=== PATIENT | female | born 1970 | race Two or more races ===

== ENCOUNTER 2024-08-26 05:45 | Day surgery (SDC) | payer MEDICAID, SELFPAY ==
[2024-08-24 10:47] VITALS: BMI 50.5
--- NOTE | 2024-08-24 11:08 | EKG_ITS ---
[facility] Test Date: 2024-08-24 Pat Name: OCTAVIO GALAVIZ Department: Room: - Gender: Female Health Sciences Manager: RTSJC : 1970 Requested By: Joesph Flood Order Number: [id number] Reading MD: Joesph Flood Measurements Intervals [place]ess Rate: 67 P: 18 ID: [id number] QRS: 8 QRSD: 87 T: 26 QT: 370 QTc: 393 Interpretive Statements SINUS RHYTHM LOW QRS VOLTAGE IN PRECORDIAL LEADS No previous ECG available for comparison /store/[email or web address]/[id number].pdf
[2024-08-24 13:13] LABS: Basophils # (Auto) 0.1 Thou/mm3 (0.0-0.2); Basophils % (Auto) 1 % (0-2.5); Eosinophils # (Auto) 0.1 Thou/mm3 (0.0-0.5); Eosinophils % (Auto) 1 % (0-10); Hemoglobin 10.7 g/dL (12.0-16.0); Immature Granulocytes % (Auto) 0 % (0-0); Immature Granulocytes Auto 0.03 Thou/mm3 (0.00-0.00); Lymphocytes # (Auto) 1.7 Thou/mm3 (1.0-4.8); Lymphocytes % (Auto) 18 % (10-50); Mean Corpuscular HGB Conc 31.5 g/dl (31.0-37.0); Mean Corpuscular Hemoglobin 24.9 pg (25.0-35.0); Mean Corpuscular Volume 79 fL (80-100); Monocytes # (Auto) 0.9 Thou/mm3 (0.0-0.8); Monocytes % (Auto) 9 % (0-12); Neutrophils # (Auto) 6.6 Thou/mm3 (1.8-7.7); Neutrophils % (Auto) 71 % (37-80); Nucleated Red Blood Cell % 0 /100 WBC (0); Platelet Count 413 Thou/mm3 (140-440); RDW Standard Deviation 55.3 fL (36.4-46.3); Red Blood Count 4.29 Miln/mm3 (4.00-5.20); White Blood Count 9.4 Thou/mm3 (3.6-11.0)
[2024-08-24 13:55] LABS: Alanine Aminotransferase 10 U/L (10-49); Albumin, Serum 4.6 gm/dL (3.5-5.0); Albumin/Globulin Ratio 1.5 (1.2-2.2); Alkaline Phosphatase 47 U/L (46-116); Anion Gap 8 (7-16); Aspartate Amino Transferase 18 U/L (0-34); BUN/Creatinine Ratio 21 Ratio (12-20); Bilirubin,Total 0.7 mg/dL (0.3-1.2); Blood Urea Nitrogen 17 mg/dL (9-23); Calcium 9.9 mg/dL (8.3-10.6); Calcium (Corrected) 9.9 mg/dL (8.5-10.1); Carbon Dioxide 27.7 mMol/L (20.0-31.0); Chloride 100 mMol/L (98-107); Creatinine (Component) 0.8 mg/dL (0.6-1.3); Estimated Creatinine Clearance 69.9 mL/min (>60); Glucose 164 mg/dL (74-106); Osmolality,Calculated 277 (275-295); Sodium 136 mMol/L (136-145); Total Protein 7.6 gm/dL (5.7-8.2); eGFR > 60 See Note
[2024-08-24 14:02] LABS: HIV (1&2) Antibody Rapid Non-Reactive
[2024-08-24 17:15] LABS: HCG,Qualitative Serum Negative
[2024-08-26] VITALS (7 sets, daily range): BP systolic 119–140; BP diastolic 76–90; PULSE 66–90; RESP 15–20; TEMP 36.7–36.9; O2SAT 95–100; BMI 50.0
[2024-08-26 02:07] LABS: Hepatitis A Antibody IgM Non Reactive (Non React); Hepatitis B Core Antibody IgM Non Reactive (Non React); Hepatitis B Surface Antigen Non Reactive (Non React); Hepatitis C Antibody Non Reactive (Non React)
[2024-08-26] MEDS: RINGERS LACTATED 1000 ML 1,000 ML 20 ML IV (06:34)
--- NOTE | 2024-08-26 08:28 | SUR.PHASEI ---
0828 Patient arrived to recovery resting comfortably in [facility], on oxygen 10L via oxy mask, sleeping and able to arouse; then drift back to sleep, breathing unlabored, vital signs stable, denies pain, dressing intact to vaginal area; peripad, no bleeding noted, lung sounds clear upon auscultation, bilateral radial pulses present when palpated, report received from Shawn MTZ and Krysta JESUS
--- NOTE | 2024-08-26 08:36 | PD.GYNPROC ---
Operative Note - [employer] Procedure Date of procedure: 08/26/24 Procedure Performed: Hysteroscopy, diagnosed Indication: Abnormal uterine bleeding Pre-Op diagnosis: Same Post-Op diagnosis: Same, likely perimenopausal Anesthesia type: General Procedure description: The patient was seen prior to surgery. The potential benefits and risks of the procedure, the likelihood of success, and the problems related to recuperation have been discussed with patient who agrees to proceed. The possible results of nontreatment and significant alternatives to the proposed procedure have also been explained, along with the risks and benefits of the alternatives. Risks and benefits of chosen anesthetic/sedation and possible use of blood/blood products (if appropriate) were discussed.The patient was identified as Danielle Cole and the procedure verified. A time out was held reviewing the patient identifiers, procedure planned and allergies. At this point the procedure was begun. The patient was positioned and prepped in routine fashion in the dorsal lithotomy position using yellowfin stirups. On examination under anesthesia,the uterus was retroverted to a normal size.Bladder was drained by catheter. A weighted speculum was then placed into the patient's posterior vagina. A familia was used to expose the anterior lip of the cervix which was then grasped by a single tooth tenaculum.The cervix was then very easily dilated to a size 6 Hegar dilator. The hysteroscope was then placed under direct visualization. Warm lactated Ringer's was used as a distention medium. The patient's uterus was found to have normal endometrial cavity without any polyps. Pictures were taken. Hysteroscope was removed and we proceeded with the D&C. Endometrial curettings were sent for pathologyy. There was minimal bleeding noted and tenaculum was removed. Hemostasis was acheived with a ringed forcep on anterior cervix. Estimated blood loss (ml): 5 Surgical staff Operation Date: 08/26/24 07:30 Case Staff SHINE WORKER: Tomi Linton Diagnosis Problem List Completed Was Problem List Reviewed/Reconciled?: Yes
--- NOTE | 2024-08-26 09:14 | SUR.PHASEII ---
0914 Patient meets discharge criteria from recovery, awake and alert, breathing unlabored, vital signs stable, denies pain, dressing intact; no bleeding, patient ate a jello and drinking cranberry juice; denies nausea, patient able to dress herself into her clothing, discharge instructions given to patient and her daughter with the assistance of the telephone air conditioning specialist Marjan ID#[id number], daughter signed discharge instructions. Patient given all her belongings prior to discharge, transported via wheelchair and left in a private vehicle.
== END 2024-08-26 09:14 | disposition home or self-care (01) ==
PROVIDERS: Anesthesiology; PCP Physician Assistant; Referring Provider Student in an Organized Health Care Education/Training Program; Visit Provider Student in an Organized Health Care Education/Training Program
PROC: 0UJD8ZZ Inspection of Uterus and Cervix, Via Natural or Artificial Opening Endoscopic (ICD-10-PCS; CPT 58555; principal; 2024-08-26 07:30)
DX: N93.9 Abnormal uterine and vaginal bleeding, unspecified (principal); Z01.810 Encounter for preprocedural cardiovascular examination; N85.01 Benign endometrial hyperplasia
CPT/HCPCS: 58555; 36415; 80053; 80074; 84703; 85025; 86703; 86850; 86900; 86901; 93005; A4217; A4649; J2250; J2704; J3010; J3490; J7120